=== PATIENT | female | born 1965 | race Caucasian/White ===

== ENCOUNTER → 2020-11-30 | Outpatient (REF) | payer OTHER ==
[2020-12-01 21:20] LABS: ANA (HEP2) Positive (.)
== END ==
LOC: M SFHCRHEU 09:44
PROVIDERS: ATTEND Internal Medicine
DX: R76.8 Other specified abnormal immunological findings in serum (principal); M85.80 Other specified disorders of bone density and structure, unspecified site

== ENCOUNTER → 2021-03-09 | Outpatient (CLI) | payer OTHER ==
--- NOTE | 2021-03-09 15:29 | DEXAMM ---
INDICATION: M85.80 OSTEOPENIA. COMPARISON: None. TECHNIQUE: Bone density was measured using dual-energy x-ray absorptiometry (DEXA). FINDINGS: AP SPINE L1-L4 BMD 1.005 g/cm2 Young Adult T-Score -1.5 Age Matched Z-Score -0.6. LT FEMUR, TOTAL BMD 0.867 g/cm2 Young Adult T-Score -1.1 Age Matched Z-Score -0.4. LT NECK BMD 0.850 g/cm2 Young Adult T-Score -1.3 Age Matched Z-Score -0.3. RT FEMUR, TOTAL BMD 0.819 g/cm2 Young Adult T-Score -1.5 Age Matched Z-Score -0.8. RT NECK BMD 0.853 g/cm2 Young Adult T-Score -1.3 Age Matched Z-Score -0.3. IMPRESSION: There is low bone density of the spine. There is low bone density of the left hip. There is low bone density of the right hip. FOLLOW-UP: Recommendation for the next bone density exam: 2 years. <Electronically signed by Bam Del Toro > 03/09/21 [id number]
== END ==
LOC: M WHC 10:51
PROVIDERS: ATTEND Internal Medicine
DX: M85.80 Other specified disorders of bone density and structure, unspecified site (principal)

== ENCOUNTER → 2024-05-10 | Outpatient (CLI) | payer OTHER, MEDICAID | LOC: M RAD 09:54 | PROVIDERS: ATTEND Nurse Practitioner Family | DX: E03.9 Hypothyroidism, unspecified (principal); E04.1 Nontoxic single thyroid nodule ==

== ENCOUNTER → 2025-05-14 | Outpatient (CLI) | payer OTHER | LOC: M RAD 12:12 | PROVIDERS: ATTEND Nurse Practitioner Family | DX: E04.1 Nontoxic single thyroid nodule (principal) ==